=== PATIENT | female | born 1985 | race Caucasian/White ===

== ENCOUNTER 2019-01-14 11:45 | Inpatient (IN) | payer OTHER ==
[2019-01-14] MEDS: ELECTROLYTE-148 SOLN 1,000 ML IV SCH ×3 (12:00→19:01)
[2019-01-14] MEDS ORDERED: TUBERCULIN PPD 5 TU/0.1ML SYRINGE (IN PATIENT USE ONLY) ID ONE ×2 (12:08→16:15)
--- NOTE | 2019-01-14 12:27 | HP ---
Past Medical History - Admission History of Present Illness: 33 yo @ 38 6/ by first trimester ultrasound, EDC 01/22/2019 complicated by: AMA - s/p favorable cell free DNA, normal AFP / Quad screen Patient reports contractions since Saturday, increasing in intensity and frequency. SROM noted upon presentation to L&D. She reports + FM, no VB. Limitations to Obtaining History: No Limitations - Past Medical History Cardiovascular: No: HTN Pulmonary: No: Asthma Gastrointestinal: No: GERD ...: 4 ...Para: 0 ...Term: 0 ...: 0 ...Induced : 2 Heme/Onc: No: Anemia Additional Medical History: ectopic , s/p methotrexate - Past Surgical History Hx Myomectomy: No Hx Transabdominal Cerclage: No Additional Surgical History: D&C - Smoking History Smoking history: Current every day smoker Aproximately how many cigarettes per day: 2 - Alcohol/Substance Use Hx Alcohol Use: No History of Substance Use: reports: None - Social History History of Recent Travel: No Home Medications - Allergies Allergies/Adverse Reactions: Allergies Allergy/AdvReac Type Severity Reaction Status Date / Time No Known Allergies Allergy Verified 01/14/19 05:28 - Home Medications Home Medications: Ambulatory Orders No Home Medications 0 dose .ROUTE UTDICT 08/02/13 Vit 108/Iron/Folic AC [ One Tablet] 1 tab PO DAILY 01/14/19 Family Disease History - Family Disease History Family History: Denies Review of Systems - Review of Systems Constitutional: reports: No Symptoms Neck: reports: No Symptoms Cardiovascular: reports: No Symptoms Respiratory: reports: No Symptoms Gastrointestinal: reports: No Symptoms Genitourinary: reports: No Symptoms Neurological: reports: No Symptoms Hematology/Lymphatic: reports: No Symptoms Psychiatric: reports: No Symptoms Physical Exam - Maternity Constitutional: Yes: Well Nourished, No Distress, Calm Cardiovascular: Yes: Regular Rate and Rhythm Lungs: Clear to auscultation - Abdominal Exam/OB Number of Fetuses: Single Presentation: Vertex Contractions: Yes Regularity: Regular Intensity: Mod/Strong Heart Rate (range): 130 Category: I Accelerations: Non-Uniform Decelerations: None - Vaginal Exam/OB Dilatation (cm): 4 Effacement (%): 90 Amniotic Membrane Status: Ruptured Amniotic Fluid: Yes: Blood Stained Presentation: Vertex/Position Station: -3 - Physical Exam Edema: No ...Motor Strength: WNL Psychiatric: Yes: Alert, Oriented - Labs Lab Results: PNL - A positive, antibody negative, RPR NR; HIV neg; Rubella Immune; Varicella Immune; GCT WNL; GBS neg; [id number] - XX, normal screen, AFP WNL; GBS neg Hemorrhage Risk Assessment - Risk Factors Medium Risk Factors: Yes: None High Risk Factors: Yes: None Risk Score: 1 Risk Level: Medium Risk Assessment/Plan 34 yo @ 38 6/7 wks, SROM, active labor 1. Admit to L&D 2. Consents reviewed and signed 3. GBS neg 4. Will offer pain medication upon patient request, she desires epidural 5. Will proceed with expectant management
[2019-01-14 12:40] VITALS: BMI 25.8
[2019-01-14] MEDS ORDERED: BUPIVACAINE HCL/PF 0.25% (2.5MG/ML) 10 ML VIAL ONE (12:42)
[2019-01-14] MEDS ORDERED: FENTANYL/BUPIVACAINE/NS/PF - PCEA - 50 ML DISP.SYRIN EP ONE ×2 (12:42→17:32)
[2019-01-14] MEDS: FENTANYL/BUPIVACAINE/NS/PF - PCEA - 50 ML DISP.SYRIN EP SCH (12:55)
[2019-01-14] MEDS ORDERED: NALOXONE HCL 0.4 MG/ML VIAL IVPUSH PRN (13:00)
[2019-01-14 13:03] LABS: BASO % 0.5 % (0-2.0); EOS % 0.6 % (0-4.5); HEMATOCRIT 36.1 % (32.4-45.2); HEMOGLOBIN 12.8 GM/dL (10.7-15.3); LYMPH % 6.9 % (8-40); MCH 34.1 pg (25.7-33.7); MCHC 35.6 g/dl (32.0-36.0); MEAN PLT VOLUME 8.5 fl (7.5-11.1); PLATELET COUNT 254 K/MM3 (134-434); RBC 3.76 M/mm3 (3.60-5.2); RDW 13.2 % (11.6-15.6)
[2019-01-14 13:22] LABS: INR 0.93 (0.83-1.09)
[2019-01-14 13:25] LABS: ACTIVATED PTT 26.7 SECONDS (25.2-36.5)
[2019-01-14 13:27] LABS: ANION GAP 10 MMOL/L (8-16); BLOOD UREA NITROGEN 10 mg/dL (7-18); CALCIUM 8.7 mg/dL (8.5-10.1); CHLORIDE 104 mmol/L (98-107); CO2 20 mmol/L (21-32); CREATININE 0.7 mg/dL (0.55-1.3); GLUCOSE,RANDOM 82 mg/dL (74-106); POTASSIUM 3.9 mmol/L (3.5-5.1); SODIUM 135 mmol/L (136-145)
[2019-01-14 13:29] LABS: COCAINE, UR NEGATIVE ng/ml (CUTOFF=300); METHADONE, UR NEGATIVE ng/ml (CUTOFF=300); OPIATES, URI NEGATIVE ng/ml (CUTOFF=300); PHENCYCLIDINE,URINE NEGATIVE ng/ml (CUTOFF=25); URINE AMPHETAMINES NEGATIVE ng/ml (CUTOFF=500); URINE BARBITURATES NEGATIVE ng/ml (CUTOFF=200); URINE BENZODIAZEPINES NEGATIVE ng/ml (CUTOFF=200)
--- NOTE | 2019-01-14 18:05 | PN ---
Ante-Partal Exam - Subjective Subjective: Patient comfortable s/p epidural Vital Signs: Vital Signs Temperature 97.8 F 01/14/19 12:32 Pulse Rate 80 01/14/19 17:45 Respiratory Rate 20 01/14/19 17:45 Blood Pressure 120/75 01/14/19 17:45 O2 Sat by Pulse Oximetry (%) 98 01/14/19 17:45 Bleeding: No Headache: No Visual changes: No Right upper quadrant pain: No - Contractions Contractions: Yes Regularity: Regular Intensity: Moderate Monitor Mode: External - Exam during Labor Heart Rate: 140 Variability: Moderate Monitor Accelerations: Present Monitor Decelerations: Variable Exam: Vaginal Dilatation (cm): 10 Effacement (%): 100 Amniotic Membrane Status: Ruptured Amniotic Fluid: Clear Presentation: Vertex Station: +2 - Intrapartum Hemorrhage Risk Medium Risk Factors: None High Risk Factors: None Risk Score: 0 Risk Level: Low Risk - Assessment/Plan Assessment/Plan: 33 yo active labor 1. Good cervical change, will await maternal urge to push 2. GBS neg 3. Good pain control 4. Will proceed with expectant management
[2019-01-14] MEDS ORDERED: OXYTOCIN 20 UNITS in 0.9% NS 20 UNIT/1,000 ML INFUS.BAG IV ONE (20:00)
[2019-01-14] MEDS ORDERED: LIDOCAINE HCL 1% PRESERVATIVE FREE - 30ML VIAL ONE (20:00)
[2019-01-14] MEDS ORDERED: BENZOCAINE 20% 57 GM BOTTLE TP PRN (21:05)
[2019-01-14] MEDS ORDERED: METHYLERGONOVINE MALEATE 0.2 MG/1 ML AMP IM PRN (21:05)
[2019-01-14] MEDS ORDERED: WITCH HAZEL 50% (TUCKS) 40 PAD/JAR PAD TP PRN (21:05)
[2019-01-14] MEDS ORDERED: BENZOCAINE 28 GM HEMORRHOIDAL OINTMENT TP PRN (21:05)
[2019-01-14] MEDS ORDERED: ACETAMINOPHEN 325 MG TABLET (FP) PO PRN (21:05)
[2019-01-14] MEDS ORDERED: BISACODYL 10 MG SUPP.RECT RC PRN (21:05)
--- NOTE | 2019-01-14 21:07 | PN ---
Delivery - Delivery Vaginal Delivery: No Problems Type of Anesthesia: Epidural Episiotomy/Laceration: Periurethral Extnsion/lac (first degree), 1st degree ( gus urethral) EBL (cc): 300 Delivery, Single - Stages of Labor Date 1st Stage Initiatied: 01/14/19 Time 1st Stage Initiated: 10:00 Date 2nd Stage Initiated: 01/14/19 Time 2nd Stage Initiated: 18:00 Date of Delivery: 01/14/19 Time of Delivery: 20:42 Date Placenta Delivered: 01/14/19 Time Placenta Delivered: 21:00 Placenta: Yes: Expressed - Condition of Infant Infant Gender: Female Position: Left, OA Total Hours ROM (Hrs/Mins): 11 hours - 1 Minute Total Score: 9 5 Minutes Total Score: 9 - [place] Feeding Plan Initial Plan: Exclusive throughout hospitalization Remarks - Remarks Remarks: Patient progressed to fully dilated and at 2041 via delivered a viable female in SIDDHARTHA position, APGARs 9,9. Weight and length unknown at this time. Head delivered spontaneously, nuchal cord noted and reduced, shoulders and body without difficulty. with spontaneous cry and placed on mother's abdomen. Nose and mouth was bulb suctioned. Cord was clamped and cut. Perineum and vagina examined, a first degree periuretheral laceration was noted and repaired in the usual fashion. Rectal exam revealed no sutures in rectum. Placenta was delivered spontaneously and intact. 20 units of pitocin in 1 L IVF was given. All counts correct x 2. Mother and stable in LDR. EBL 300cc.
[2019-01-14] MEDS ORDERED: OXYTOCIN 20 UNITS in 0.9% NS 20 UNIT/1,000 ML INFUS.BAG IV SCH (21:15)
--- NOTE | 2019-01-15 00:24 | PN ---
Post Progress Note - Subjective Subjective: Patient without acute complaints. Reports tolerating oral intake without nausea or vomiting. Ambulating without dizziness. Denies fevers or chills. Pain well controlled with oral pain medication. without difficulty. Passing flatus. Post Day: 1 Type of Delivery: Vital Signs: Vital Signs Temperature 98.1 F 01/14/19 23:18 Pulse Rate 80 01/14/19 23:18 Respiratory Rate 18 01/14/19 23:18 Blood Pressure 112/50 L 01/14/19 23:18 O2 Sat by Pulse Oximetry (%) 98 01/14/19 20:00 Breast Exam: Yes: Engorged Uterus: Yes: Fundus Firm Abdomen/GI: Yes: Abdomen soft, Passing flatus, Tolerating PO. No: Abdominal Distention, Tender Lochia: Yes: Serosa Activity: Ambulating - Labs Labs: CBC WBC 15.0 K/mm3 (4.0-10.0) H 01/14/19 12:35 RBC 3.76 M/mm3 (3.60-5.2) 01/14/19 12:35 Hgb 12.8 GM/dL (10.7-15.3) 01/14/19 12:35 Hct 36.1 % (32.4-45.2) 01/14/19 12:35 MCV 96.0 fl (80-96) 01/14/19 12:35 MCH 34.1 pg (25.7-33.7) H 01/14/19 12:35 MCHC 35.6 g/dl (32.0-36.0) 01/14/19 12:35 RDW 13.2 % (11.6-15.6) 01/14/19 12:35 Plt Count 254 K/MM3 (134-434) 01/14/19 12:35 MPV 8.5 fl (7.5-11.1) 01/14/19 12:35 Absolute Neuts (auto) 13.2 K/mm3 (1.5-8.0) H 01/14/19 12:35 Neutrophils % 88.0 % (42.8-82.8) H 01/14/19 12:35 Lymphocytes % 6.9 % (8-40) L 01/14/19 12:35 Monocytes % 4.0 % (3.8-10.2) 01/14/19 12:35 Eosinophils % 0.6 % (0-4.5) 01/14/19 12:35 Basophils % 0.5 % (0-2.0) 01/14/19 12:35 Nucleated RBC % 0 % (0-0) 01/14/19 12:35 Assessment/Plan 34 yo PPD # 1 s/p , afebrile, vital signs stable, doing well 1. Continue routine care. 2. Follow up AM CBC 3. Rh positive status, no rhogam indicated. 4. Encourage ambulation 5. Continue oral pain medication 6. Anticipate discharge home day #2
[2019-01-15 08:14] LABS: BASO % 0.1 % (0-2.0); EOS % 0.6 % (0-4.5); HEMATOCRIT 31.2 % (32.4-45.2); HEMOGLOBIN 11.2 GM/dL (10.7-15.3); MCH 34.2 pg (25.7-33.7); MCHC 35.8 g/dl (32.0-36.0); MEAN CELL VOLUME 95.6 fl (80-96); MEAN PLT VOLUME 8.5 fl (7.5-11.1); NEUT % 85.3 % (42.8-82.8); PLATELET COUNT 225 K/MM3 (134-434); RBC 3.26 M/mm3 (3.60-5.2); RDW 13.1 % (11.6-15.6); WHITE BLOOD COUNT 14.2 K/mm3 (4.0-10.0)
[2019-01-15] MEDS: FERROUS SO4 325 MG TABLET (FP) PO SCH ×3 (08:25→17:24)
[2019-01-15] MEDS: IBUPROFEN 600 MG TABLET (FP) PO PRN (12:33)
[2019-01-15] MEDS: FENTANYL/BUPIVACAINE/NS/PF - PCEA - 50 ML DISP.SYRIN EP SCH (16:15)
[2019-01-15] MEDS ORDERED: SENNOSIDES/DOCUSATE COMBO (SENNA PLUS) TABLET (UD) PO PRN (22:00)
--- NOTE | 2019-01-16 06:33 | DS ---
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 Vital Signs: Vital Signs Temperature 97 F L 01/15/19 21:53 Pulse Rate 71 01/15/19 21:53 Respiratory Rate 18 01/15/19 21:53 Blood Pressure 117/67 01/15/19 21:53 O2 Sat by Pulse Oximetry (%) 98 01/14/19 20:00 Constitutional: Yes: Well Nourished, No Distress, Calm Eyes: Yes: WNL, Conjunctiva Clear, EOM Intact HENT: Yes: WNL, Atraumatic, Normocephalic Neck: Yes: WNL, Supple, Trachea Midline Cardiovascular: Yes: WNL, Regular Rate and Rhythm Respiratory: Yes: WNL, Regular, CTA Bilaterally Gastrointestinal: Yes: WNL ...Rectal Exam: Yes: WNL Renal/: Yes: WNL ....Post : Yes: Uterus firm, Uterus non-tender, Slight lochia rubra Breast(s): Yes: WNL Musculoskeletal: Yes: WNL Extremities: Yes: WNL Edema: No Integumentary: Yes: WNL Neurological: Yes: WNL, Alert, Oriented ...Motor Strength: WNL Psychiatric: Yes: WNL, Alert, Oriented Labs: CBC, BMP 01/15/19 07:30 01/14/19 12:35 Delivery - Delivery Vaginal Delivery: No Problems, Spontaneous Type of Anesthesia: Local, Epidural Episiotomy/Laceration: Periurethral Extnsion/lac, 1st degree EBL (cc): 300 Delivery, Single - Stages of Labor Date 1st Stage Initiatied: 01/14/19 Time 1st Stage Initiated: 10:00 Date 2nd Stage Initiated: 01/14/19 Time 2nd Stage Initiated: 18:00 Date of Delivery: 01/14/19 Time of Delivery: 20:42 Time Placenta Delivered: 21:00 Placenta: Yes: Expressed - 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: No Gender: Female Weight: 6 lb 14 oz Position: Left, OA Total Hours ROM (Hrs/Mins): [id number] - 1 Minute Total Score: 9 5 Minutes Total Score: 9 - [place] Feeding Plan Initial Plan: Exclusive throughout hospitalization Discharge Summary Reason For Visit: LABOR Procedures: Principal: Condition: Good - Instructions Diet, Activity, Other Instructions: regular diet, follow up office 4 weeks, if fever, heavy vaginal bleeding call MD Referrals: Jun Tsai MD [Staff Physician] - Disposition: HOME - Home Medications Comprehensive Discharge Medication List: Ambulatory Orders No Home Medications 0 dose .ROUTE UTDICT 08/02/13 Vit 108/Iron/Folic AC [ One Tablet] 1 tab PO DAILY 01/14/19 Ibuprofen [Motrin -] 600 mg PO QID #28 tablet 01/15/19
[2019-01-16] MEDS: FERROUS SO4 325 MG TABLET (FP) PO SCH ×2 (09:00→12:36)
[2019-01-16] MEDS: IBUPROFEN 600 MG TABLET (FP) PO PRN (09:32)
[2019-01-16 11:32] VITALS: BP 126/73; PULSE 72; TEMP 99
--- NOTE | 2019-01-22 13:03 | PATH ---
Surgical Pathology Report Patient Name: YONATAHN URBINA [facility]. Rec. 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 YOLK SAC REMNANT IDENTIFIED. NO FOREIGN BODY PRESENT. Electronically Signed Molina Alcantar M.D. Gross Description The specimen is received fresh labeled placenta and is a 330 gram, 14.5 x 14.5 x 2.6 cm. placenta with attached membranes and umbilical cord. The attached membranes are johnson, translucent with focal opacities and insert marginally. The umbilical cord measures 35 cm. in length and averages 1 cm. in diameter. The cord inserts eccentrically, 4 cm. to the nearest margin. No true knots or strictures are identified. Cut surface of the umbilical cord reveals 3 vessels. The surface is clark-blue with minimal fibrin deposition and appropriate caliber vessels. There is a 0.4 cm white, circular lesion on the surface adjacent to the cord insertion, consistent with a yolk sac remnant. No foreign body is identified, despite the indication in the clinical history. The maternal surface is red-brown with focal defects. Sectioning reveals red-brown, spongy parenchyma. No lesions are identified. Agricultural Education Teacher sections are submitted in 4 cassettes as follows: 1-membrane roll and umbilical cord; 2-3-full thickness sections of placenta; 4-yolk sac remnant. /01/21/2019 saudi01/21/2019
== END 2019-01-16 13:30 | disposition home or self-care (01) | DRG 560 ==
LOC: JDEL 11:45 → JLDR 12:05 → J3W 23:17
PROVIDERS: ADMIT Obstetrics & Gynecology; ATTEND Obstetrics & Gynecology
PROC: 0HQ9XZZ Repair Perineum Skin, External Approach (ICD-10-PCS; principal; 2019-01-14)
PROC: 10E0XZZ Delivery of Products of Conception, External Approach (ICD-10-PCS; 2019-01-14)
DX: O71.82 Other specified trauma to perineum and vulva (principal); O70.0 First degree perineal laceration during delivery; Z3A.38 38 weeks gestation of pregnancy; Z37.0 Single live birth
CPT/HCPCS: 36415; 59409; 80048; 80307; 85025; 85610; 85730; 86593; 86850; 86900; 86901; 88307-TC

== ENCOUNTER 2021-01-20 02:25 | Inpatient (IN) | payer OTHER ==
[2021-01-20] MEDS ORDERED: LIDOCAINE HCL 1% PRESERVATIVE FREE - 30ML VIAL ONE ×2 (03:21→13:38)
[2021-01-20 03:22] VITALS: BMI 26.6
[2021-01-20 03:31] LABS: BASO % 0.1 % (0-2.0); EOS % 0.4 % (0-4.5); HEMATOCRIT 36.6 % (32.4-45.2); HEMOGLOBIN 12.1 GM/dL (10.7-15.3); LYMPH % 4.5 % (8-40); MCH 30.4 pg (25.7-33.7); MEAN CELL VOLUME 92.1 fl (80-96); MEAN PLT VOLUME 9.1 fl (7.5-11.1); MONO % 4.7 % (3.8-10.2); NEUT % 90.3 % (42.8-82.8); PLATELET COUNT 215 K/MM3 (134-434); RBC 3.98 M/mm3 (3.60-5.2); RDW 13.3 % (11.6-15.6); WHITE BLOOD COUNT 15.6 K/mm3 (4.0-10.0)
[2021-01-20 03:37] LABS: INR 0.87 (0.83-1.09); PROTHROMBIN TIME (PATIENT) 10.7 SEC (9.7-13.0)
[2021-01-20] MEDS ORDERED: FLUCONAZOLE 150 MG TABLET PO ONE (03:38)
[2021-01-20 03:39] LABS: ACTIVATED PTT 27.8 SECONDS (25.2-36.5)
[2021-01-20 03:41] LABS: CALCIUM 9.1 mg/dL (8.5-10.1)
[2021-01-20 03:42] LABS: BLOOD UREA NITROGEN 11.6 mg/dL (7-18)
[2021-01-20 03:45] LABS: CREATININE 0.6 mg/dL (0.55-1.3)
[2021-01-20] MEDS ORDERED: DEXTROSE 5%-LACTATED RINGERS 1,000 ML IV SCH (03:45)
[2021-01-20] MEDS ORDERED: PCA PUMP NR ONE ×2 (03:52→09:16)
[2021-01-20] MEDS ORDERED: FENTANYL/BUPIVACAINE/NS/PF - PCEA - 50 ML DISP.SYRIN EP ONE ×3 (03:59→13:25)
[2021-01-20] MEDS: ELECTROLYTE-148 SOLN 1,000 ML IV SCH ×2 (04:00→06:20)
[2021-01-20] MEDS ORDERED: NALOXONE HCL 0.4 MG/ML VIAL IVPUSH PRN (04:10)
[2021-01-20] MEDS ORDERED: BUPIVACAINE HCL/PF 0.25% (2.5MG/ML) 10 ML VIAL ONE (04:12)
[2021-01-20] MEDS ORDERED: FENTANYL/BUPIVACAINE/NS/PF - PCEA - 50 ML DISP.SYRIN EP SCH (04:15)
[2021-01-20] MEDS ORDERED: OXYTOCIN 20 UNITS in 0.9% NS 20 UNIT/1,000 ML INFUS.BAG IV ONE (13:38)
[2021-01-20] MEDS ORDERED: WITCH HAZEL 50% (TUCKS) 40 PAD/JAR PAD TP PRN (14:40)
[2021-01-20] MEDS ORDERED: BENZOCAINE 20% 57 GM BOTTLE TP PRN (14:40)
[2021-01-20] MEDS ORDERED: METHYLERGONOVINE MALEATE 0.2 MG/1 ML AMP IM PRN (14:40)
[2021-01-20] MEDS ORDERED: BISACODYL 10 MG SUPP.RECT RC PRN (14:40)
[2021-01-20] MEDS ORDERED: BENZOCAINE 28 GM HEMORRHOIDAL OINTMENT TP PRN (14:40)
[2021-01-20] MEDS ORDERED: OXYTOCIN 20 UNITS in 0.9% NS 20 UNIT/1,000 ML INFUS.BAG IV SCH (14:45)
[2021-01-20] MEDS: ACETAMINOPHEN 325 MG TABLET (FP) PO PRN (16:08)
[2021-01-20] MEDS: IBUPROFEN 600 MG TABLET (FP) PO PRN (16:09)
[2021-01-21] MEDS: IBUPROFEN 600 MG TABLET (FP) PO PRN (02:50)
[2021-01-21] MEDS: ACETAMINOPHEN 325 MG TABLET (FP) PO PRN (02:50)
[2021-01-21] MEDS ORDERED: PRENATAL VITAMINS W/ FOLIC ACID TABLET (FP) PO SCH ×2 (10:00)
[2021-01-21 10:25] LABS: BASO % 0.1 % (0-2.0); HEMATOCRIT 33.1 % (32.4-45.2); HEMOGLOBIN 11.3 GM/dL (10.7-15.3); LYMPH % 7.7 % (8-40); MCH 31.3 pg (25.7-33.7); MEAN PLT VOLUME 8.8 fl (7.5-11.1); MONO % 5.7 % (3.8-10.2); NEUT % 85.5 % (42.8-82.8); PLATELET COUNT 214 K/MM3 (134-434); RDW 13.8 % (11.6-15.6); WHITE BLOOD COUNT 13.6 K/mm3 (4.0-10.0)
[2021-01-21 15:48] VITALS: BP 102/60; PULSE 66; TEMP 97.7
[2021-01-21] MEDS ORDERED: SENNOSIDES/DOCUSATE COMBO (SENNA PLUS) TABLET (UD) PO PRN (22:00)
== END 2021-01-21 15:15 | disposition home or self-care (01) | DRG 560 ==
LOC: JDEL 02:25 → JLDR 02:50 → J3W 15:48
PROVIDERS: ADMIT Obstetrics & Gynecology; ATTEND Obstetrics & Gynecology
PROC: 10E0XZZ Delivery of Products of Conception, External Approach (ICD-10-PCS; principal; 2021-01-20)
PROC: 0W8NXZZ Division of Female Perineum, External Approach (ICD-10-PCS; 2021-01-20)
DX: O80 Encounter for full-term uncomplicated delivery (principal); Z3A.39 39 weeks gestation of pregnancy; Z37.0 Single live birth; Z87.59 Personal history of other complications of pregnancy, childbirth and the puerperium
CPT/HCPCS: 36415; 59409; 80048; 85025; 85610; 85730; 86780; 86850; 86900; 86901; C9803; U0003; U0005